=== PATIENT | male | born 1980 | race Caucasian/White ===

== ENCOUNTER 2023-12-23 14:40 | Emergency (ER) | payer OTHER ==
[~2023-12-23] VITALS: Ht 182.9 cm; Wt 90.7 kg
[2023-12-23 15:27] VITALS: BP_SYST 154; PULSE 68; RESP 18; TEMP 98.1; O2SAT 97
[2023-12-23 15:53] VITALS: BP_SYST 152; PULSE 68; RESP 18; TEMP 98.1; O2SAT 97
== END 2023-12-23 17:19 | disposition home or self-care (01) ==
LOC: SED 14:40
DX: S06.0X0A Concussion without loss of consciousness, initial encounter (principal); S00.83XA Contusion of other part of head, initial encounter; Z79.899 Other long term (current) drug therapy; V89.2XXA Person injured in unspecified motor-vehicle accident, traffic, initial encounter; Y93.89 Activity, other specified; Y92.89 Other specified places as the place of occurrence of the external cause; Y99.8 Other external cause status
CPT/HCPCS: 70450-TC; 70486; 99284